=== PATIENT | male | born 1970 | race Caucasian/White ===

== ENCOUNTER 2017-01-18 15:23 | Inpatient (IN) | payer OTHER ==
[~2017-01-18] VITALS: Ht 180.3 cm; Wt 89.0 kg
[~2017-01-18 15:23] MED LIST: NOCURR
[2017-01-18] MEDS ORDERED: SODIUM CHLORIDE 0.9% 1,000 ML IV ONE (15:46)
[2017-01-18] MEDS ORDERED: ACETAMINOPHEN 1000 MG/ISO-OSM 100 ML IV ONE (16:00)
[2017-01-18] MEDS ORDERED: DIAZEPAM 5 MG/ML 2 ML SYRINGE IVP ONE ×2 (16:00→18:15)
[2017-01-18 16:10] LABS: BASOPHILS % (AUTO) 0.2 % (0.0-2.0); EOSINOPHILS % (AUTO) 0 % (1.0-6.0); HEMATOCRIT 38.4 % (41-53); HEMOGLOBIN 13.1 g/dL (13.5-17.5); LYMPHOCYTES # (AUTO) 0.4 K/uL (1.0-4.8); MEAN CORPUSCULAR HEMOGLOBIN 35.4 pg (26.0-34.0); MEAN CORPUSCULAR HGB CONC 34.2 G/dL (31.0-37.0); MEAN CORPUSCULAR VOLUME 104 fL (80-100); MONOCYTES # (AUTO) 0.5 K/uL (0.1-1.0); MONOCYTES % (AUTO) 10.5 % (2.0-9.0); NEUTROPHILS # (AUTO) 3.9 K/uL (1.8-7.7); NEUTROPHILS % (AUTO) 81.3 % (40.0-70.0); RED BLOOD CELL COUNT(AUTO) 3.71 MIL/uL (4.50-5.90); RED CELL DISTRIBUTION WIDTH 13.8 % (11.5-14.5); WHITE BLOOD COUNT (AUTO) 4.8 K/uL (4.5-11.0)
[2017-01-18 16:29] LABS: ALBUMIN 3.9 g/dL (3.4-5.0); BILIRUBIN,TOTAL 1.8 mg/dL (0.1-1.0); CALCIUM, TOTAL 6.6 mg/dL (8.8-10.5); CREATININE 2.64 mg/dL (0.60-1.30); TOTAL PROTEIN, SERUM 6.9 g/dL (6.4-8.2)
[2017-01-18 16:31] LABS: POTASSIUM 2.3 mmol/L (3.5-5.1)
[2017-01-18 16:36] LABS: RBC MORPHOLOGY COMMENT ABNORMAL RBC MORPH
[2017-01-18] MEDS ORDERED: POTASSIUM CHLORIDE 20 MEQ ER TABLET PO ONE (16:45)
[2017-01-18] MEDS ORDERED: POTASSIUM CHL 40 MEQ/D5-0.45NS 1,000 ML IV ONE (16:45)
[2017-01-18 16:59] LABS: PLATELET COUNT (AUTO) 63 K/uL (150-450)
[2017-01-18] MEDS ORDERED: ACETAMINOPHEN 325 MG TABLET PO PRN (18:30)
[2017-01-18] MEDS ORDERED: ONDANSETRON HCL 4 MG/2 ML VIAL IVP PRN (18:30)
[2017-01-18] MEDS ORDERED: 0.9% SODIUM CHLORIDE 10 ML SYRINGE IVP PRN (18:30)
[2017-01-18 18:46] LABS: MAGNESIUM 0.2 mg/dL (1.80-2.40)
[2017-01-18] MEDS ORDERED: MAGNESIUM SULFATE 2 GM in DEXTROSE 5%-WATER 50 ML IV ONE (19:00)
[2017-01-18 20:44] VITALS: BP 134/89
[2017-01-18] MEDS ORDERED: MAGNESIUM SULFATE 6 GM in DEXTROSE 5%-WATER 150 ML IV ONE (22:30)
[2017-01-18] MEDS ORDERED: SODIUM CHLORIDE 0.9% 100 ML ONE (23:05)
[2017-01-18] MEDS ORDERED: POTASSIUM CHL 10 MEQ/WATER 50 ML IV PRN (23:15)
[2017-01-18] MEDS ORDERED: MORPHINE SULFATE 2 MG/ML SYRINGE IVP PRN (23:15)
[2017-01-18] MEDS ORDERED: POTASSIUM CHLORIDE 20 MEQ ER TABLET PO PRN (23:15)
[2017-01-18] MEDS ORDERED: MAGNESIUM SULFATE 4 GM/WATER 100 ML IV PRN (23:15)
[2017-01-18] MEDS ORDERED: MAGNESIUM SULFATE 2 GM in DEXTROSE 5%-WATER 50 ML IV PRN (23:15)
[2017-01-18] MEDS ORDERED: LORazepam 2 MG/ML VIAL IVP PRN ×2 (23:15)
[2017-01-18] MEDS: POTASSIUM CHL 20 MEQ/0.45% NS 1,000 ML IV SCH (23:47)
[2017-01-18] MEDS: POTASSIUM CHL 10 MEQ/WATER 50 ML IV SCH (23:54)
[2017-01-19] MEDS: POTASSIUM CHL 10 MEQ/WATER 50 ML IV SCH ×6 (00:02→03:37)
[2017-01-19 00:09] VITALS: BP 139/87
[2017-01-19] MEDS: ChlordiazePOXIDE HCL 10 MG CAPSULE PO PRN ×2 (02:31→13:34)
[2017-01-19 04:20] VITALS: BP 149/84
[2017-01-19 07:02] LABS: CALCIUM, TOTAL 6.8 mg/dL (8.8-10.5); CREATININE 3.09 mg/dL (0.60-1.30); MAGNESIUM 2.6 mg/dL (1.80-2.40); POTASSIUM 3.6 mmol/L (3.5-5.1)
[2017-01-19 07:31] VITALS: BP 141/92
[2017-01-19 08:02] LABS: APPEARANCE,URINE CLEAR (CLEAR); GLUCOSE, URINE (UA) NEGATIVE (NEGATIVE); KETONES,URINE NEGATIVE (NEGATIVE); LEUKOCYTE ESTERASE ,URINE NEGATIVE (NEGATIVE); OCCULT BLOOD,URINE SMALL (NEGATIVE); PROTEIN,URINE POS 1+ (NEGATIVE)
[2017-01-19 08:04] LABS: ADD UA MICROSCOPIC YES
[2017-01-19 08:07] LABS: RBC,URINE 0-2 /HPF (0-2); TRANSITIONAL EPI CELLS,URINE Rare /LPF (None Seen); WBC,URINE 0-2 /HPF (0-5)
[2017-01-19] MEDS: ChlordiazePOXIDE HCL 25 MG CAPSULE PO SCH ×3 (08:28→16:22)
[2017-01-19] MEDS ORDERED: PANTOPRAZOLE SODIUM 40 MG DR TABLET PO SCH (09:00)
[2017-01-19] MEDS ORDERED: MAGNESIUM OXIDE 400 MG TABLET PO SCH (09:00)
[2017-01-19] MEDS ORDERED: MULTIVITAMINS WITH MINERALS, THERAPEUTIC TABLET PO SCH (09:00)
[2017-01-19] MEDS ORDERED: FOLIC ACID 1 MG TABLET PO SCH (09:00)
[2017-01-19] MEDS ORDERED: ATENOLOL 25 MG TABLET PO SCH (09:00)
[2017-01-19] MEDS ORDERED: DOCUSATE SODIUM 100 MG CAPSULE PO SCH (09:00)
[2017-01-19] MEDS ORDERED: THIAMINE HCL 100 MG TABLET PO SCH (09:00)
[2017-01-19] MEDS ORDERED: ENOXAPARIN SODIUM 40 MG/0.4 ML PF SYRINGE SQ SCH (09:00)
[2017-01-19 11:11] VITALS: BP 138/52
[2017-01-19] MEDS: POTASSIUM CHL 20 MEQ/0.45% NS 1,000 ML IV SCH ×2 (13:34→15:15)
[2017-01-19 15:09] VITALS: BP 142/99
== END 2017-01-19 17:15 | disposition left against medical advice (07) | DRG 641 ==
LOC: EMS 15:24 → 5N 18:31
PROVIDERS: ADMIT Internal Medicine; ATTEND Internal Medicine
DX: E87.6 Hypokalemia (principal); F10.239 Alcohol dependence with withdrawal, unspecified; I10 Essential (primary) hypertension; E83.42 Hypomagnesemia; E86.0 Dehydration; Y90.9 Presence of alcohol in blood, level not specified; Z53.21 Procedure and treatment not carried out due to patient leaving prior to being seen by health care provider; S30.0XXA Contusion of lower back and pelvis, initial encounter; X58.XXXA Exposure to other specified factors, initial encounter; Y93.89 Activity, other specified; Y92.89 Other specified places as the place of occurrence of the external cause; Y99.8 Other external cause status
CPT/HCPCS: 72100; 83735; 93005; 96365; 96366; 96367; 96368; 96375; 99291; J0131; J1650; J3475; J3480; J7030; J7050; J7060